=== PATIENT | male | born 1990 | race Caucasian/White ===

== ENCOUNTER 2020-10-18 11:12 | Emergency (ER) | payer OTHER ==
[2020-10-18] MEDS ORDERED: ZESTRIL10 MG PO (11:43)
[2020-10-18] MEDS ORDERED: VIBRAMYCIN 100100 MG PO (11:43)
[2020-10-18] MEDS ORDERED: STROMECTOL3 MG PO (11:43)
== END 2020-10-18 11:57 | disposition home or self-care (01) ==
LOC: ER1 11:12
DX: B86 Scabies (principal); L03.116 Cellulitis of left lower limb; L03.115 Cellulitis of right lower limb; I10 Essential (primary) hypertension
CPT/HCPCS: 82962; 99283

== ENCOUNTER 2020-11-03 13:37 | Emergency (ER) | payer OTHER ==
[~2020-11-03 13:37] MED LIST: STROMECTOL3 MG PO; VIBRAMYCIN 100100 MG PO; ZESTRIL10 MG PO
[2020-11-03] MEDS ORDERED: MEDROL DOSEPAK 24 MG PO (14:47)
[2020-11-03] MEDS ORDERED: CEPHALEXIN500 M1 PO (14:47)
== END 2020-11-03 15:00 | disposition home or self-care (01) ==
LOC: ER1 13:37
DX: L56.8 Other specified acute skin changes due to ultraviolet radiation (principal); I10 Essential (primary) hypertension; Z79.899 Other long term (current) drug therapy; Z88.0 Allergy status to penicillin; F17.210 Nicotine dependence, cigarettes, uncomplicated
CPT/HCPCS: 96372; 99283; J1100